=== PATIENT | female | born 1990 | race Caucasian/White ===

== ENCOUNTER 2017-04-14 03:34 | Emergency (ER) | payer SELFPAY ==
[~2017-04-14] VITALS: Ht 165.1 cm; Wt 68.0 kg
[2017-04-14] MEDS ORDERED: ERYTHROMYCIN E3.5 G2 OPHTHALMIC (04:28)
[2017-04-14] MEDS ORDERED: NORCO 5-325 TA1 EACH PO (04:28)
== END 2017-04-14 04:48 | disposition home or self-care (01) ==
LOC: ER 03:34
DX: S05.31XA Ocular laceration without prolapse or loss of intraocular tissue, right eye, initial encounter (principal); X58.XXXA Exposure to other specified factors, initial encounter; Y93.89 Activity, other specified; Y92.89 Other specified places as the place of occurrence of the external cause; Y99.8 Other external cause status